=== PATIENT | female | born 1995 | race Caucasian/White ===

== ENCOUNTER 2021-09-01 16:14 | Emergency (ER) | payer BC ==
[2021-09-01] MEDS ORDERED: Ondansetron ODT 4 MG TAB ONE (17:04)
[2021-09-01] MEDS ORDERED: Ketorolac Tromethamine 30 MG/ML VIAL ONE (17:32)
== END 2021-09-01 17:45 | disposition home or self-care (01) ==
LOC: CSHERS 16:14
DX: M25.511 Pain in right shoulder (principal)
CPT/HCPCS: 96372; J1885; Q0162